=== PATIENT | male | born 1965 | race Caucasian/White ===

== ENCOUNTER 2017-03-24 13:04 | Inpatient (IN) | payer OTHER ==
[2017-03-24] MEDS ORDERED: SODIUM CHLORIDE 0.9% 1,000 ML IV STA ×2 (13:30)
--- NOTE | 2017-03-24 14:01 | ED ---
General Adult HPI - General Chief complaint: Abdominal Pain Stated complaint: Abd pain Time Seen by Provider: 03/24/17 13:30 Source: patient, RN notes reviewed Mode of arrival: ambulatory - History of Present Illness Initial comments: chief complaint and history of present illness this is a 51-year-old male here for complaint of abdominal pain. Patient reports the pain started lower abdomen now more to the right lower quadrant. Decreased appetite. No nausea no vomiting no diarrhea. Patient does have a history of diverticulitis in the past. He's not been eating nuts but he has been eating some foods with seeds such as pickles. - Related Data Home Medications Medication Instructions Recorded Confirmed No Known Home Medications [No 03/24/17 03/24/17 Known Home Medications] Allergies Allergy/AdvReac Type Severity Reaction Status Date / Time codeine Allergy Rapid Verified 03/24/17 13:26 Heart Rate Review of Systems ROS Statement: Those systems with pertinent positive or pertinent negative responses have been documented in the HPI. review of systems. Patient denies any headache no visual acuity changes no chest pain or shortness of breath. He has discomfort to the lower abdomen is now radiating to work toward the right lower quadrant mildly exquisite with mild palpation and mild rebound with referred pain to the right lower quadrant with guarding. Getting worse over the past 24 hours. No nausea no vomiting no diarrhea. All systems are reviewedPast medical problems RA, diverticulitis. Surgeries none. Family history father had prostate cancer. The patient has ALLERGIES to codeine. He is a smoker he was advised to stop. Denies alcohol use. Patient presents with tachycardic heart rate, denies drugs. ROS Other: All systems not noted in ROS Statement are negative. Past Medical History Past Medical History: Rheumatoid Arthritis (RA) Additional Past Medical History / Comment(s): diverticulitis History of Any Multi-Drug Resistant Organisms: None Reported Past Surgical History: No Surgical Hx Reported Past Psychological History: No Psychological Hx Reported Smoking Status: Current every day smoker Past Alcohol Use History: None Reported Past Drug Use History: None Reported General Exam - General Exam Comments Initial Comments: General: The patient is awake and alert, in no distress, and does not appear acutely ill. Eye: Pupils are equal, round and reactive to light, extra-ocular movements are intact ; there is normal conjunctiva bilaterally. No signs of icterus. Ears, nose, mouth and throat: There are moist mucous membranes and no oral lesions. Neck: The neck is supple, there is no tenderness . Cardiovascular: tachycardic heart rate, 130.no rubs rales or wheezing. No murmur. Respiratory: Lungs are clear to auscultation, respirations are non-labored, breath sounds are equal. No wheezes, stridor, rales, or rhonchi. Gastrointestinal: patient has guarding rebound mild referred pain to the right lower quadrant. Abdominal pain initially started in the lower abdomen on the left side midline and now located to the right lower quadrant. There is a past history of diverticulitis. Denies nausea vomiting. Denies any change in color of the stool. Back: no back pain Musculoskeletal: denies any upper or lower extremity pain or decreased range of motion. Neurological: no neuro deficits no rashes Course Vital Signs 03/24/17 03/24/17 03/24/17 13:14 13:41 15:12 Temperature 98.3 F 101.8 F H 101.7 F H Pulse Rate 135 H 128 H 110 H Respiratory 18 18 18 Rate Blood Pressure 142/86 145/79 O2 Sat by Pulse 96 94 L Oximetry 03/24/17 16:05 Temperature 100.7 F H Pulse Rate 107 H Respiratory 20 Rate Blood Pressure 150/82 O2 Sat by Pulse 96 Oximetry Medical Decision Making - Medical Decision Making medical decision making; the patient is here with right lower quadrant pain. Clinically positive for possible appendicitis.Labs show white count of 7.8 hemoglobin 14.9 hematocrit of 46, potassium 3.9, BUN 14 creatinine 1.0 GFR greater than 60. Urine clean no signs of infection. Amylase lipase normal limits. Radiologist called to state that the patient has what appears to be acute appendicitis. no free air, no well-formed fluid collection. Evidence of diverticulosis but no diverticulitis.. radiologist stated that he wants the surgeon to be attentive to the base of the cecum for some other pathology causing the appendicitis. As read by Dr. costello case was discussed with Dr. Mireles, the significant CT impression, concerning the CT findings which were consistent with acute appendicitis and also for the surgeon to correlate with possible obstructing inferior cecal neoplasm at the time surgery was discussed. . Dr. Mireles wants patient admitted Nothing by mouth started on IV antibiotics Zosyn he will see the patient. - Lab Data Result diagrams: 03/24/17 14:00 03/24/17 14:00 Lab Results 03/24/17 03/24/17 03/24/17 Range/Units 14:00 14:00 14:00 WBC 7.8 (3.8-10.6) k/uL RBC 5.00 (4.30-5.90) m/uL Hgb 14.9 (13.0-17.5) gm/dL Hct 46.0 (39.0-53.0) % MCV 91.9 (80.0-100.0) fL MCH 29.8 (25.0-35.0) pg MCHC 32.4 (31.0-37.0) g/dL RDW 13.7 (11.5-15.5) % Plt Count 139 L (150-450) k/uL Neutrophils % 78 % Lymphocytes % 18 % Monocytes % 3 % Eosinophils % 1 % Basophils % 0 % Neutrophils # 6.1 (1.3-7.7) k/uL Lymphocytes # 1.4 (1.0-4.8) k/uL Monocytes # 0.2 (0-1.0) k/uL Eosinophils # 0.1 (0-0.7) k/uL Basophils # 0.0 (0-0.2) k/uL Sodium 141 (137-145) mmol/L Potassium 3.9 (3.5-5.1) mmol/L Chloride 109 H (98-107) mmol/L Carbon Dioxide 22 (22-30) mmol/L Anion Gap 10 mmol/L BUN 14 (9-20) mg/dL Creatinine 1.00 (0.66-1.25) mg/dL Est GFR (MDRD) Af Amer >60 (>60 ml/min/1.73 sqM) Est GFR (MDRD) Non-Af >60 (>60 ml/min/1.73 sqM) Glucose 111 H (74-99) mg/dL Plasma Lactic Acid Carson 1.7 (0.7-2.0) mmol/L Calcium 9.6 (8.4-10.2) mg/dL Total Bilirubin 0.9 (0.2-1.3) mg/dL AST 16 L (17-59) U/L ALT 37 (21-72) U/L Alkaline Phosphatase 99 (38-126) U/L Total Protein 7.3 (6.3-8.2) g/dL Albumin 4.2 (3.5-5.0) g/dL Amylase 61 (30-110) U/L Lipase 149 (23-300) U/L Urine Color Urine Appearance (Clear) Urine pH (5.0-8.0) Ur Specific Grand Chain (1.001-1.035) Urine Protein (Negative) Urine Glucose (UA) (Negative) Urine Ketones (Negative) Urine Blood (Negative) Urine Nitrite (Negative) Urine Bilirubin (Negative) Urine Urobilinogen (<2.0) mg/dL Ur Leukocyte Esterase (Negative) 03/24/17 Range/Units 14:31 WBC (3.8-10.6) k/uL RBC (4.30-5.90) m/uL Hgb (13.0-17.5) gm/dL Hct (39.0-53.0) % MCV (80.0-100.0) fL MCH (25.0-35.0) pg MCHC (31.0-37.0) g/dL RDW (11.5-15.5) % Plt Count (150-450) k/uL Neutrophils % % Lymphocytes % % Monocytes % % Eosinophils % % Basophils % % Neutrophils # (1.3-7.7) k/uL Lymphocytes # (1.0-4.8) k/uL Monocytes # (0-1.0) k/uL Eosinophils # (0-0.7) k/uL Basophils # (0-0.2) k/uL Sodium (137-145) mmol/L Potassium (3.5-5.1) mmol/L Chloride (98-107) mmol/L Carbon Dioxide (22-30) mmol/L Anion Gap mmol/L BUN (9-20) mg/dL Creatinine (0.66-1.25) mg/dL Est GFR (MDRD) Af Amer (>60 ml/min/1.73 sqM) Est GFR (MDRD) Non-Af (>60 ml/min/1.73 sqM) Glucose (74-99) mg/dL Plasma Lactic Acid Carson (0.7-2.0) mmol/L Calcium (8.4-10.2) mg/dL Total Bilirubin (0.2-1.3) mg/dL AST (17-59) U/L ALT (21-72) U/L Alkaline Phosphatase (38-126) U/L Total Protein (6.3-8.2) g/dL Albumin (3.5-5.0) g/dL Amylase (30-110) U/L Lipase (23-300) U/L Urine Color Yellow Urine Appearance Clear (Clear) Urine pH 5.0 (5.0-8.0) Ur Specific Grand Chain 1.014 (1.001-1.035) Urine Protein Trace H (Negative) Urine Glucose (UA) Negative (Negative) Urine Ketones Negative (Negative) Urine Blood Negative (Negative) Urine Nitrite Negative (Negative) Urine Bilirubin Negative (Negative) Urine Urobilinogen <2.0 (<2.0) mg/dL Ur Leukocyte Esterase Negative (Negative) Disposition Clinical Impression: Acute appendicitis Disposition: ADMITTED IP TO THIS [facility] Condition: Fair Referrals: Minerva Ames DO [Primary Care Provider] - 1-2 days
[2017-03-24 14:13] LABS: Basophils % (A) 0 %; Eosinophils # (A) 0.1 k/uL (0-0.7); Eosinophils % (A) 1 %; HGB 14.9 gm/dL (13.0-17.5); Lymphocytes # (A) 1.4 k/uL (1.0-4.8); Lymphocytes % (A) 18 %; MCH 29.8 pg (25.0-35.0); MCHC 32.4 g/dL (31.0-37.0); MCV 91.9 fL (80.0-100.0); Mean Platelet Volume 8.4; Monocytes # (A) 0.2 k/uL (0-1.0); Monocytes % (A) 3 %; Neutrophils # (A) 6.1 k/uL (1.3-7.7); Neutrophils % (A) 78 %; Platelet Count 139 k/uL (150-450); RDW 13.7 % (11.5-15.5); WBC 7.8 k/uL (3.8-10.6)
[2017-03-24 14:23] LABS: ALT 37 U/L (21-72); AST 16 U/L (17-59); Albumin 4.2 g/dL (3.5-5.0); Alkaline Phosphatase 99 U/L (38-126); Amylase 61 U/L (30-110); Anion Gap 10 mmol/L; Blood Urea Nitrogen 14 mg/dL (9-20); Calcium 9.6 mg/dL (8.4-10.2); Carbon Dioxide 22 mmol/L (22-30); Chloride 109 mmol/L (98-107); Glucose 111 mg/dL (74-99); Lipase 149 U/L (23-300); Potassium 3.9 mmol/L (3.5-5.1); Sodium 141 mmol/L (137-145); Total Bilirubin 0.9 mg/dL (0.2-1.3); Total Protein 7.3 g/dL (6.3-8.2)
[2017-03-24 14:43] LABS: Appearance,Urine Clear (Clear); Bilirubin,Urine Negative (Negative); Blood,Urine Negative (Negative); Color,Urine Yellow; Glucose,Urine (UA) Negative (Negative); Ketones,Urine Negative (Negative); Leukocyte Esterase,Urine Negative (Negative); Nitrite,Urine Negative (Negative); Protein,Urine Trace (Negative); Specific Gravity,Urine 1.014 (1.001-1.035); Urobilinogen,Urine <2.0 mg/dL (<2.0)
[2017-03-24] MEDS ORDERED: RX INFO: IV CONTRAST WAS GIVEN 1 EACH MISC MISCELLANE PRN (15:03)
[2017-03-24] MEDS ORDERED: IOHEXOL 350 MG/ML 25 ML BOTTLE (ORAL USE) PO PRN (15:03)
[2017-03-24] MEDS ORDERED: KETOROLAC 30 MG/ML 1 ML VIAL IVP STA (15:15)
--- NOTE | 2017-03-24 17:18 | CT ---
EXAMINATION TYPE: CT abdomen pelvis w con DATE OF EXAM: 03/24/2017 COMPARISON: NONE HISTORY: Lower abd pain x1 day CT DLP: 712.1 mGycm, Automated Exposure Control for Dose Reduction was Utilized. CONTRAST: CT scan of the abdomen and pelvis is performed with oral and with IV Contrast, patient injected with 100ml mL of Omnipaque 300. FINDINGS: LUNG BASES: Dependent atelectasis is seen in both bases. There is additional linear scarring and/or a telectasis anteriorly right lung base LIVER/GB: No significant abnormality is appreciated. PANCREAS: No significant abnormality is seen. SPLEEN: No significant abnormality is seen. ADRENALS: No significant abnormality is seen. KIDNEYS: No significant abnormality is seen. BOWEL: Oral contrast reaches level of the cecum. There is no suspicious small or large bowel dilatati on. Terminal ileum is unremarkable. Appendix is abnormal as is dilated up to 11 mm with moderate ill-defined fluid and fat stranding. CT findings are consistent with acute appendicitis. Inferior cecal wall shows eccentric wall thickening seen best coronal image 48, less suspicious sagittal image 26, underlying cecal neoplasm cannot be ex cluded and should be considered in patient of this age. No free air is seen. No well-formed fluid col lection is noted. Sigmoid colonic diverticulosis is also present without CT evidence for acute diverticulitis. PROSTATE/SEMINAL VESICLES: No gross abnormality seen. LYMPH NODES: No greater than 1cm abdominal or pelvic lymph nodes are appreciated. OSSEOUS STRUCTURES: There is mild facet arthropathy lower lumbar levels. OTHER: No significant additional abnormality is seen. IMPRESSION: CT findings are consistent with acute appendicitis as detailed above. Correlate for possi ble obstructing inferior cecal neoplasm at time of surgery. Critical results communicated to ordering ER physician via telephone at time of dictation.
[2017-03-24] MEDS ORDERED: NALOXONE 0.4 MG/ML 1 ML VIAL IV PRN (17:27)
[2017-03-24] MEDS ORDERED: HYDROmorphone 2 MG/ML 1 ML SYRINGE IVP PRN (17:27)
[2017-03-24] MEDS ORDERED: ONDANSETRON 4 MG/2 ML VIAL IVP PRN (17:27)
[2017-03-24] MEDS ORDERED: PIPERACILLIN-TAZOBACTAM 3.375 GM in DEXTROSE/WATER 1 50ML.BAG IVPB STA (17:34)
[2017-03-24 18:38] VITALS: BMI 24.5
[2017-03-24] MEDS: SODIUM CHLORIDE 0.9% 1,000 ML IV SCH (18:57)
[2017-03-24] MEDS: KETOROLAC 30 MG/ML 1 ML VIAL IVP SCH (22:14)
[2017-03-25] MEDS: PIPERACILLIN-TAZOBACTAM 3.375 GM in DEXTROSE/WATER 1 50ML.BAG IVPB SCH ×3 (00:34→16:54)
[2017-03-25] MEDS: SODIUM CHLORIDE 0.9% 1,000 ML IV SCH ×3 (00:35→17:17)
[2017-03-25 07:25] LABS: Basophils # (A) 0.1 k/uL (0-0.2); Basophils % (A) 1 %; Eosinophils # (A) 0.2 k/uL (0-0.7); Eosinophils % (A) 1 %; HCT 43.8 % (39.0-53.0); HGB 14.1 gm/dL (13.0-17.5); Lymphocytes # (A) 1.8 k/uL (1.0-4.8); Lymphocytes % (A) 14 %; MCH 30.2 pg (25.0-35.0); MCHC 32.3 g/dL (31.0-37.0); MCV 93.5 fL (80.0-100.0); Mean Platelet Volume 8.8; Monocytes # (A) 0.5 k/uL (0-1.0); Monocytes % (A) 4 %; Neutrophils # (A) 9.5 k/uL (1.3-7.7); Neutrophils % (A) 77 %; Platelet Count 128 k/uL (150-450); RBC 4.69 m/uL (4.30-5.90); RDW 13.7 % (11.5-15.5); WBC 12.4 k/uL (3.8-10.6)
--- NOTE | 2017-03-25 07:56 | P.GSHP ---
History of Present Illness H&P Date: 03/25/17 Chief Complaint: Right lower quadrant pain This a 51-year-old male who has a 48 hour history of abdominal pain. Patient states that he had significant right lower quadrant pain for 24 hours prior to his admission through the emergency room. Patient underwent computed tomography scan of the abdomen. He is found have evidence of acute appendicitis with a dilated appendix. There is also question of cecal wall thickening or tumors.. The patient states he is hungry. He states his pain is manageable without pain meds. He is resting comfortably in his bed. Past Medical History Past Medical History: Rheumatoid Arthritis (RA) Additional Past Medical History / Comment(s): diverticulitis History of Any Multi-Drug Resistant Organisms: None Reported Past Surgical History: Tonsillectomy Smoking Status: Current every day smoker Medications and Allergies Home Medications Medication Instructions Recorded Confirmed Type No Known Home Medications [No 03/24/17 03/24/17 History Known Home Medications] Allergies Allergy/AdvReac Type Severity Reaction Status Date / Time codeine Allergy Rapid Verified 03/24/17 13:26 Heart Rate Surgical - Exam Vital Signs Temp Pulse Resp Pulse Ox 98.3 F 135 H 18 96 03/24/17 13:14 03/24/17 13:14 03/24/17 13:14 03/24/17 13:14 - General well developed, no distress - Eyes PERRL - ENT normal pinna - Neck no masses - Respiratory normal expansion - Cardiovascular Rhythm: regular - Abdomen Mild right lower quadrant tenderness. There is no rebound or guarding. Abdomen: soft Results - Labs 03/25/17 07:05 03/24/17 14:00 Abnormal Lab Results - Last 24 Hours (Table) 03/24/17 03/24/17 03/24/17 Range/Units 14:00 14:00 14:31 WBC (3.8-10.6) k/uL Plt Count 139 L (150-450) k/uL Neutrophils # (1.3-7.7) k/uL Chloride 109 H (98-107) mmol/L Glucose 111 H (74-99) mg/dL AST 16 L (17-59) U/L Urine Protein Trace H (Negative) 03/25/17 Range/Units 07:05 WBC 12.4 H (3.8-10.6) k/uL Plt Count 128 L (150-450) k/uL Neutrophils # 9.5 H (1.3-7.7) k/uL Chloride (98-107) mmol/L Glucose (74-99) mg/dL AST (17-59) U/L Urine Protein (Negative) Diabetes panel 03/24/17 Range/Units 14:00 Sodium 141 (137-145) mmol/L Potassium 3.9 (3.5-5.1) mmol/L Chloride 109 H (98-107) mmol/L Carbon Dioxide 22 (22-30) mmol/L BUN 14 (9-20) mg/dL Creatinine 1.00 (0.66-1.25) mg/dL Glucose 111 H (74-99) mg/dL Calcium 9.6 (8.4-10.2) mg/dL AST 16 L (17-59) U/L ALT 37 (21-72) U/L Alkaline Phosphatase 99 (38-126) U/L Total Protein 7.3 (6.3-8.2) g/dL Albumin 4.2 (3.5-5.0) g/dL Calcium panel 03/24/17 Range/Units 14:00 Calcium 9.6 (8.4-10.2) mg/dL Albumin 4.2 (3.5-5.0) g/dL Pituitary panel 03/24/17 Range/Units 14:00 Sodium 141 (137-145) mmol/L Potassium 3.9 (3.5-5.1) mmol/L Chloride 109 H (98-107) mmol/L Carbon Dioxide 22 (22-30) mmol/L BUN 14 (9-20) mg/dL Creatinine 1.00 (0.66-1.25) mg/dL Glucose 111 H (74-99) mg/dL Calcium 9.6 (8.4-10.2) mg/dL Adrenal panel 03/24/17 Range/Units 14:00 Sodium 141 (137-145) mmol/L Potassium 3.9 (3.5-5.1) mmol/L Chloride 109 H (98-107) mmol/L Carbon Dioxide 22 (22-30) mmol/L BUN 14 (9-20) mg/dL Creatinine 1.00 (0.66-1.25) mg/dL Glucose 111 H (74-99) mg/dL Calcium 9.6 (8.4-10.2) mg/dL Total Bilirubin 0.9 (0.2-1.3) mg/dL AST 16 L (17-59) U/L ALT 37 (21-72) U/L Alkaline Phosphatase 99 (38-126) U/L Total Protein 7.3 (6.3-8.2) g/dL Albumin 4.2 (3.5-5.0) g/dL - Imaging CT scan - pelvis: report reviewed (CT abdomen is reviewed. There is evidence of dilated appendix and questionable cecal wall thickening.) Assessment and Plan Assessment: Acute appendicitis. Patient will undergo laparoscopic appendectomy. I had a lengthy discussion with the patient regarding laparoscopic appendectomy. I discussed with him that he will undergo postoperative colonoscopy to evaluate his cecum. I've also discussed with him that if I see any evidence of a cecal tumor that he will undergo possible excision.
[2017-03-25] MEDS ORDERED: SODIUM CHLORIDE 0.9% 1,000 ML IV ONE (08:55)
[2017-03-25] MEDS ORDERED: SUCCINYLCHOLINE CHLORIDE 100 MG/5 ML SYR IV ONE (10:04)
[2017-03-25] MEDS ORDERED: KETOROLAC 30 MG/ML 1 ML VIAL ONE (10:04)
[2017-03-25] MEDS ORDERED: ONDANSETRON 4 MG/2 ML VIAL ONE (10:04)
[2017-03-25] MEDS ORDERED: ROCURONIUM BROMIDE 10 MG/ML 10 ML VIAL IV ONE (10:04)
[2017-03-25] MEDS ORDERED: HYDROmorphone (PF) 1 MG/ML ONE (10:04)
[2017-03-25] MEDS ORDERED: PROPOFOL 10 MG/ML 20 ML VIAL IV ONE (10:04)
[2017-03-25] MEDS ORDERED: NEOSTIGMINE 1 MG/ML 10 ML VIAL ONE (10:04)
[2017-03-25] MEDS ORDERED: MIDAZOLAM 2 MG/2 ML VIAL ONE (10:04)
[2017-03-25] MEDS ORDERED: DEXAMETHASONE SOD PHOS (MDV) 100 MG/10 ML VIAL ONE (10:04)
[2017-03-25] MEDS ORDERED: LIDOCAINE 1% INJ 10MG/ML (20 ML MDV) ONE (10:04)
[2017-03-25] MEDS ORDERED: fentaNYL (PF) 50 MCG/ML 2 ML AMP ONE (10:04)
[2017-03-25] MEDS ORDERED: GLYCOPYRROLATE 0.2 MG/ML 2 ML VIAL ONE (10:04)
[2017-03-25] MEDS ORDERED: BUPIVACAINE-EPI 0.5%-1:200,000 10 ML VIAL SQ ONE (10:22)
[2017-03-25] MEDS ORDERED: LACTATED RINGERS 1,000 ML IV ONE ×2 (10:40→10:46)
[2017-03-25] MEDS ORDERED: NALOXONE 0.4 MG/ML 1 ML VIAL IV PRN (10:46)
[2017-03-25] MEDS ORDERED: HYDROmorphone 2 MG/ML 1 ML SYRINGE IVP PRN (10:46)
[2017-03-25] MEDS ORDERED: ACETAMINOPHEN TAB 325 MG TAB PO PRN (10:46)
[2017-03-25] MEDS ORDERED: traMADol 50 MG TAB PO PRN (10:46)
[2017-03-25] MEDS ORDERED: ONDANSETRON 4 MG/2 ML VIAL IVP PRN (10:46)
[2017-03-25] MEDS ORDERED: HYDROcodone/APAP 5-325MG 1 EACH TAB PO PRN (10:46)
--- NOTE | 2017-03-25 10:55 | P.OP ---
Date of Procedure: 03/25/17 Preoperative Diagnosis: Acute appendicitis Postoperative Diagnosis: Acute appendicitis pathology pending Procedure(s) Performed: Laparoscopic appendectomy Anesthesia: FREDDIE Surgeon: Rogerio Mireles Estimated Blood Loss (ml): 5 Pathology: other (Appendix) Condition: stable Disposition: PACU Description of Procedure: The patient's placed on the operating table in the supine position. The patient received general anesthesia. The abdomen was prepped and draped in the usual sterile fashion. The skin was anesthetized 1% local Xylocaine at the trocar sites. Using an 11 blade the skin was incised at the umbilicus. The umbilicus was grasped with a Barrington clamp and then a Veress needle was placed into the peritoneal cavity. Position of the Veress needle was confirmed with positive drop test. After adequate insufflation a 5 mm trocar was placed into the peritoneal cavity. The abdomen was further insufflated. And then the laparoscope was placed in the peritoneal cavity. Next a 5 mm trocar was placed in the midline suprapubic position. And then a 10 mm trocar was placed in the midline epigastric position. The patient was rotated with the right side up and in Trendelenburg. The appendix was visualized. The appendix appeared to be hemorrhagic with some necrosis. It had a peculiar appearance. It was photographed. The appendix appeared to be inflamed. The appendix was grasped and then using the Harmonic scissors the mesoappendix was divided. A PDS Endoloop was then placed around the base of the appendix. And then the appendix was divided using Harmonic scissors. The appendix was placed into an Endo Catch and brought out through the 10 mm trocar site. The abdomen was irrigated. There is no bleeding seen. The trochars withdrawn. The skin was closed interrupted 3-0 Monocryl suture. Dermabond dressing was applied. Patient was sent to recovery room in stable condition.
[2017-03-25] MEDS: KETOROLAC 30 MG/ML 1 ML VIAL IVP SCH ×3 (11:57→22:02)
[2017-03-25] MEDS: PANTOPRAZOLE 40 MG/10 ML VIAL IV SCH (12:09)
--- NOTE | 2017-03-25 14:28 | P.CONS ---
History of Present Illness - Reason for Consult Consult date: 03/25/17 medical management - Chief Complaint abdominal pain - History of Present Illness this is a 51-year-old gentleman with no significant past medical history who presented to the emergency room with severe abdominal pain that started all of a sudden in the lower abdomen and felt like someone kicked him in the abdomen. Patient reported decreased appetite and nausea. No vomiting. He was evaluated in the emergency room and was found to be septic with high-grade fever and tachycardia. Computed tomography scan of the abdomen showed evidence of acute appendicitis. Patient was admitted under Gen. surgery and underwent laparoscopic appendectomy this morning. His postoperative day #0. He tolerated the surgery well. He is currently getting liquid diet with no difficulty. His pain is well-controlled. No more fevers documented. Review of Systems Review of system: 14 points review of systems were obtained and were negative except to what were mentioned in the HPI. Past Medical History Past Medical History: Rheumatoid Arthritis (RA) Additional Past Medical History / Comment(s): diverticulitis History of Any Multi-Drug Resistant Organisms: None Reported Past Surgical History: Tonsillectomy Smoking Status: Current every day smoker Medications and Allergies Home Medications Medication Instructions Recorded Confirmed Type No Known Home Medications [No 03/24/17 03/24/17 History Known Home Medications] Allergies Allergy/AdvReac Type Severity Reaction Status Date / Time codeine Allergy Rapid Verified 03/24/17 13:26 Heart Rate Physical Exam Vitals: Vital Signs Temp Pulse Pulse Pulse Pulse Resp BP 03/25/17 14:00 03/25/17 13:30 03/25/17 13:00 91 03/25/17 12:45 03/25/17 12:30 03/25/17 12:15 80 03/25/17 12:00 98.2 F 86 16 03/25/17 11:40 78 16 03/25/17 11:25 74 16 03/25/17 11:10 97 16 03/25/17 10:58 98.6 F 98 16 03/25/17 09:00 99.4 F 84 16 03/25/17 08:00 99.0 F 95 18 03/25/17 04:00 90 16 03/25/17 03:45 99.0 F 90 16 03/25/17 00:00 16 03/24/17 23:25 98.8 F 95 16 03/24/17 20:00 99 F 105 H 18 03/24/17 18:32 98.7 F 99 16 03/24/17 18:07 98.7 F 97 18 121/72 03/24/17 16:05 100.7 F H 107 H 20 150/82 03/24/17 15:12 101.7 F H 110 H 18 145/79 BP Pulse Ox 03/25/17 14:00 100/69 03/25/17 13:30 109/69 03/25/17 13:00 110/70 03/25/17 12:45 93/60 03/25/17 12:30 102/65 03/25/17 12:15 98/62 03/25/17 12:00 105/65 93 L 03/25/17 11:40 110/64 94 L 03/25/17 11:25 108/60 95 03/25/17 11:10 120/70 96 03/25/17 10:58 120/70 96 03/25/17 09:00 138/78 96 03/25/17 08:00 136/73 93 L 03/25/17 04:00 03/25/17 03:45 124/64 93 L 03/25/17 00:00 03/24/17 23:25 127/68 93 L 03/24/17 20:00 116/86 96 03/24/17 18:32 136/81 99 03/24/17 18:07 97 03/24/17 16:05 96 03/24/17 15:12 Intake and Output 03/24/17 03/25/17 03/25/17 22:59 06:59 14:59 Intake Total 759 487 6823 Output Total 5 Balance 828 920 1722 Intake: IV 600 Intake, IV Titration 350 550 Amount Piperacillin-Tazobactam 3 50 50 .375 gm In Dextrose/Water 1 50ml.bag @ 12.5 mls/hr IVPB Q8H RYANN Rx#: [id number] Sodium Chloride 0.9% 1, 300 500 000 ml @ 100 mls/hr IV . Q10H STA Rx#:[id number] Oral 300 560 Output: Estimated Blood Loss 5 Other: Voiding Method Toilet Toilet Toilet # Voids 2 1 Weight 77.4 kg General: The patient is awake and alert, in no distress Eye: there is normal conjunctiva bilaterally. Neck: The neck is supple, there is no JVD. Cardiovascular: Normal S1-S2, no S3-S4, no murmurs. Respiratory: Lungs clear to auscultation bilaterally Gastrointestinal: Abdomen is soft, nontender Musculoskeletal: There is no pedal edema. Neurological:. Speech is normal. Skin: Skin is warm and dry Results CBC & Chem 7: 03/25/17 07:05 03/24/17 14:00 Labs: Abnormal Lab Results - Last 24 Hours (Table) 03/24/17 03/25/17 Range/Units 14:31 07:05 WBC 12.4 H (3.8-10.6) k/uL Plt Count 128 L (150-450) k/uL Neutrophils # 9.5 H (1.3-7.7) k/uL Urine Protein Trace H (Negative) Assessment and Plan Assessment: 1. Acute appendicitis status post laparoscopic appendectomy 2. Severe sepsis without septic shock, currently on Zosyn awaiting blood cultures to finalize. improved significantly since admission. Continue IV fluid hydration. 3. DVT prophylaxis on Lovenox. Today, I reviewed his medication list and lab work results. Continue current regimen. Advance diet as directed by general surgery. Thank you very much for the consultation. I will continue to follow with you closely.
[2017-03-25] MEDS: DOCUSATE 100 MG CAP PO SCH (22:02)
[2017-03-26] MEDS: PIPERACILLIN-TAZOBACTAM 3.375 GM in DEXTROSE/WATER 1 50ML.BAG IVPB SCH ×2 (00:03→08:59)
[2017-03-26] MEDS: SODIUM CHLORIDE 0.9% 1,000 ML IV SCH (01:38)
[2017-03-26] MEDS: KETOROLAC 30 MG/ML 1 ML VIAL IVP SCH ×2 (05:18→11:25)
[2017-03-26] MEDS: DOCUSATE 100 MG CAP PO SCH (08:18)
[2017-03-26] MEDS: PANTOPRAZOLE 40 MG/10 ML VIAL IV SCH (08:18)
[2017-03-26] MEDS ORDERED: PANTOPRAZOLE 40 MG/10 ML VIAL IV SCH (09:00)
[2017-03-26] MEDS ORDERED: ENOXAPARIN 40 MG/0.4 ML SYRINGE SQ SCH (09:00)
[2017-03-26 09:12] LABS: Basophils % (A) 0 %; Eosinophils % (A) 0 %; HCT 37.7 % (39.0-53.0); HGB 11.6 gm/dL (13.0-17.5); Lymphocytes # (A) 0.9 k/uL (1.0-4.8); Lymphocytes % (A) 8 %; MCH 29.4 pg (25.0-35.0); MCHC 30.9 g/dL (31.0-37.0); MCV 95.2 fL (80.0-100.0); Mean Platelet Volume 10.1; Monocytes # (A) 0.5 k/uL (0-1.0); Monocytes % (A) 4 %; Neutrophils # (A) 10.4 k/uL (1.3-7.7); Neutrophils % (A) 86 %; Platelet Count 117 k/uL (150-450); RBC 3.96 m/uL (4.30-5.90); RDW 14.9 % (11.5-15.5); WBC 12.1 k/uL (3.8-10.6)
[2017-03-26 09:42] VITALS: BP 123/63; PULSE 73; RESP 12; TEMP 98.2
--- NOTE | 2017-03-26 10:07 | P.DS ---
Providers Date of admission: 03/25/17 15:06 Expected date of discharge: 03/26/17 Attending physician: Rogerio Ngo Consults: 03/25/17 10:46 Consult Physician Routine Consulting Provider: Brody Joe Consult Reason/Comments: Medical management Do you want consulting provider notified?: Yes [facility]: 51-year-old male presented to emergency room with a chief complaint of developing a sudden onset of right lower abdominal pain. patient states the pain felt like someone had kicked him in his right lower abdomen. He stated he had not had any prior episodes. Patient had a CAT scan of the abdomen pelvis it showed evidence of an acute appendicitis with a dilated appendix. There was also questionable cecal wall thickening. Temp and the emergency room on a 1.8 heart rate in the 90s. White count.7.8 Patient was seen by surgical service. Underwent a laparoscopic appendectomy for acute appendicitis. Postop there were no events. Patient was able to ambulate in the hallway passing gas rectally tolerating a diet stated pain medication effective for pain control. Patient was felt to be hemodynamically stable and appropriate proceed with a discharge to home impression discharge diagnosis Present on admission onset right lower quadrant pain suspect due to an acute appendicitis postop March 25 laparoscopic appendectomy pathology pending present on admission tachycardic febrile meet SIRS criteria early sepsis suspect due to acute appendicitis Current every day smoker leukocytosis suspect reactive The above impression and plan of care have been discussed and directed by signing physician. Reny Jj nurse practitioner acting as scribe for signing physician. Patient Condition at Discharge: Fair Plan - Discharge Summary Discharge Rx Participant: No New Discharge Prescriptions: New Ibuprofen [Motrin] 400 mg PO Q6HR PRN #15 tab PRN Reason: Pain Control traMADol HCl [Ultram] 50 mg PO Q6H PRN #15 tab PRN Reason: Mild To Moderate Pain Discharge Medication List Ibuprofen [Motrin] 400 mg PO Q6HR PRN #15 tab 03/26/17 [Rx] traMADol HCl [Ultram] 50 mg PO Q6H PRN #15 tab 03/26/17 [Rx] Follow up Appointment(s)/Referral(s): Minerva Ames DO [Primary Care Provider] - 03/29/17 9:00 am (Appointment at [facility]) Rogerio Ngo MD [STAFF PHYSICIAN] - 03/29/17 3:15 pm ( ) Patient Instructions/Handouts: Laparoscopic Appendectomy (DC) Activity/Diet/Wound Care/Special Instructions: No tub bath for six weeks. Shower daily. No lifting over 4 pounds for the next 6 weeks. do not remove surgical dressings until seen in the follow-up surgical visit May use ice packs to surgical site. No driving while taking narcotic for pain. will need to follow-up with the pathology report with Dr. ngo in office May return to work after seen in a follow-up visit with Discharge Disposition: HOME SELF-CARE
--- NOTE | 2017-03-26 11:59 | P.PN ---
Subjective Progress Note Date: 03/26/17 Acute appendicitis status post laparoscopic appendectomy. Tolerating liquid diet. Surgery has cleared him for discharge. No new complaints. Objective - Vital Signs Vital signs: Vital Signs Temp 98.2 F 03/26/17 08:00 Pulse 73 03/26/17 08:00 Resp 12 03/26/17 08:00 BP 123/63 03/26/17 08:00 Pulse Ox 93 L 03/26/17 08:00 Intake & Output 03/25/17 03/26/17 03/26/17 18:59 06:59 18:59 Intake Total 1160 1800 540 Output Total 5 400 Balance 1155 1400 540 Weight 76 kg Intake: IV 600 Intake, IV Titration 1300 Amount Lactated Ringers 1,000 ml 1250 @ 125 mls/hr IV .Q8H ONE Rx#:[id number] Piperacillin-Tazobactam 3 50 .375 gm In Dextrose/Water 1 50ml.bag @ 12.5 mls/hr IVPB Q8H RYANN Rx#: [id number] Oral 560 500 540 Output: Urine 400 Estimated Blood Loss 5 Other: Voiding Method Toilet Toilet # Voids 1 - Exam Head normocephalic Neck supple Lungs clear to auscultation bilaterally no wheezing or crackles Heart regular rate and rhythm S1-S2, no rub or gallop Abdomen is soft nontender nondistended positive bowel sounds no hepatosplenomegaly Extremities no edema Neuro alert and orientated to 3 - Labs CBC & Chem 7: 03/26/17 08:59 03/24/17 14:00 Labs: Abnormal Lab Results - Last 24 Hours (Table) 03/26/17 Range/Units 08:59 WBC 12.1 H (3.8-10.6) k/uL RBC 3.96 L (4.30-5.90) m/uL Hgb 11.6 L (13.0-17.5) gm/dL Hct 37.7 L (39.0-53.0) % MCHC 30.9 L (31.0-37.0) g/dL Plt Count 117 L (150-450) k/uL Neutrophils # 10.4 H (1.3-7.7) k/uL Lymphocytes # 0.9 L (1.0-4.8) k/uL Microbiology - Last 24 Hours (Table) 03/24/17 14:00 Blood Culture - Preliminary Blood No Growth after 24 hours Assessment and Plan Assessment: 1. Acute appendicitis status post laparoscopic appendectomy 2. Sepsis secondary to acute appendicitis. Now resolved. Blood cultures are negative. No need for antibiotics at discharge. 3. DVT prophylaxis on Lovenox. Patient follow-up with his PCP in 1 week. He is medically stable for discharge.
== END 2017-03-26 14:26 | disposition home or self-care (01) | DRG 854 ==
LOC: EC 13:04 → 3OBS 17:27 → OBSVTOIN 03-25 15:06 → 3SUR 03-25 17:42
PROVIDERS: ADMIT Surgery; ATTEND Surgery
PROC: 0DTJ4ZZ Resection of Appendix, Percutaneous Endoscopic Approach (ICD-10-PCS; principal; 2017-03-25 08:14)
DX: A41.9 Sepsis, unspecified organism (principal); K35.80 Unspecified acute appendicitis; F17.200 Nicotine dependence, unspecified, uncomplicated; K57.90 Diverticulosis of intestine, part unspecified, without perforation or abscess without bleeding; M06.9 Rheumatoid arthritis, unspecified; Z80.42 Family history of malignant neoplasm of prostate; Z71.6 Tobacco abuse counseling; Z90.49 Acquired absence of other specified parts of digestive tract; Z88.6 Allergy status to analgesic agent
CPT/HCPCS: 36415; 74177; 80053; 81003; 82150; 83605; 83690; 85025; 87040; 88304; 93005; 96361; 96374; 99285